=== PATIENT | male | born 1955 | race Caucasian/White ===

== ENCOUNTER → 2018-06-10 | Outpatient (CLI) | payer OTHER ==
--- NOTE | 2018-06-10 13:42 | REP ---
Clinical: Acute shortness of breath . Comparison: None . Technique: PA and lateral. Findings: The mediastinum and cardiac silhouette are normal. The lung wise suggest emphysematous changes without acute consolidation, effusion, or pneumothorax. The skeletal structures are intact and normal. Impression: 1. No acute cardiopulmonary process. Electronically Signed by Yan Garza MD 06/10/2018 01:34 P
== END ==
LOC: M WUC 13:14
PROVIDERS: ATTEND Physician Assistant
DX: R06.02 Shortness of breath (principal)

== ENCOUNTER → 2018-08-22 | Outpatient (CLI) | payer BC ==
--- NOTE | 2018-08-23 04:03 | REP ---
Clinical: Chronic cough. Technique: Axial noncontrast images from the thoracic inlet to the upper abdomen with coronal and sagittal re-formations. Comparison: None. Findings: Very minimal scattered scarring is appreciated along with findings to suggest mild early emphysematous disease. No consolidation, significant nodule, or mass lesion. No pleural effusion. No pneumothorax. No significant bronchiectasis. Mediastinum demonstrates normal thoracic aorta, heart and pericardium. No significant adenopathy. Osseous structures are intact without focal abnormality. Limited upper abdomen demonstrates normal bilateral adrenal glands. Impression: Minimal scattered scarring and findings to suggest possible early emphysematous disease. Electronically Signed by Yan Garza MD 08/23/2018 03:56 A
== END ==
LOC: M RAD 09:49
PROVIDERS: ATTEND Nurse Practitioner Family
DX: R05 Cough (principal)

== ENCOUNTER → 2018-09-28 | Outpatient (CLI) | payer BC ==
--- NOTE | 2018-09-28 08:08 | REP ---
Abdominal aortic sonography: History: Abdominal aortic aneurysm screening. Findings: There is no evidence of abdominal aortic aneurysm. The aorta measures 2.5 x 2.3 cm in AP by transverse dimension proximally at the diaphragmatic hiatus. At the main renal artery origin level these dimensions are 2.1 x 2-3 cm. The mid aortic dimensions are 2.0 x 2.0 cm. The distal aorta tapers to no dimensions of 1.7 x 1.9 cm. The right and left common iliac arteries are normal measuring 1.0 and 1.1 cm in AP dimension respectively. Impression: Normal abdominal aortic sonography. Electronically Signed by Yoel Toussaint MD 09/28/2018 07:59 A
== END ==
LOC: M RAD 07:19
PROVIDERS: ATTEND Family Medicine
DX: Z13.6 Encounter for screening for cardiovascular disorders (principal)

== ENCOUNTER → 2020-03-28 | Outpatient (REF) | payer MEDICARE ==
[2020-03-28 14:32] LABS: BASO # 0.1 10^3/uL (0.0-0.2); BASO % 0.5 % (0.0-1.0); EOS # 0.2 10^3/uL (0.0-0.5); EOS % 1.4 % (0.0-3.0); HEMATOCRIT 44.1 % (42.0-52.0); HEMOGLOBIN 13.9 g/dl (13.5-17.5); LYMPH # 2.6 10^3/uL (1.5-5.0); LYMPH % 17.7 % (24.0-44.0); MEAN CORPUSCULAR HGB CONC 31.5 g/dl (32.0-36.5); MEAN CORPUSCULAR VOLUME 98.4 fl (80.0-96.0); MONO # 0.8 10^3/uL (0.0-0.8); MONO % 5.4 % (0.0-5.0); NEUTROPHILS % 74.6 % (36.0-66.0); PLATELET COUNT, AUTOMATED 287 10^3/uL (150-450); RED BLOOD COUNT 4.48 10^6/uL (4.30-6.10); WHITE BLOOD COUNT 14.8 10^3/uL (4.0-10.0)
[2020-03-28 15:06] LABS: ALBUMIN 3.1 GM/DL (3.2-5.2); ALT/SGPT 20 U/L (12-78); BILIRUBIN,TOTAL 0.5 MG/DL (0.2-1.0); BLOOD UREA NITROGEN 15 MG/DL (7-18); CALCIUM LEVEL 8.8 MG/DL (8.8-10.2); CARBON DIOXIDE LEVEL 29 MEQ/L (21-32); CHLORIDE LEVEL 105 MEQ/L (98-107); CHOLESTEROL LEVEL 180 MG/DL (<200); CREATININE FOR GFR 0.95 MG/DL (0.70-1.30); GLOMERULAR FILTRATION RATE > 60.0 (>49); GLUCOSE, FASTING 101 MG/DL (70-100); HDL CHOLESTEROL 50 MG/DL (>40); LDL CHOLESTEROL 111 MG/DL (<100); NON-HDL-C 130 MG/DL; POTASSIUM SERUM 4.2 MEQ/L (3.5-5.1); SODIUM LEVEL 137 MEQ/L (136-145); TOTAL PROTEIN 10.1 GM/DL (6.4-8.2); TRIGLYCERIDES LEVEL 95 MG/DL (<150)
[2020-03-28 15:13] LABS: HEMOGLOBIN A1c 5.7 %
== END ==
LOC: M SFHCPLAZ 10:41
PROVIDERS: ATTEND Family Medicine
DX: R03.0 Elevated blood-pressure reading, without diagnosis of hypertension (principal); Z13.1 Encounter for screening for diabetes mellitus; Z13.220 Encounter for screening for lipoid disorders; Z79.899 Other long term (current) drug therapy